=== PATIENT | male | born 1950 | race Caucasian/White ===

== ENCOUNTER 2016-08-26 16:28 | Inpatient (IN) | payer BC ==
[~2016-08-26] VITALS: Ht 172.7 cm; Wt 168.3 kg
[2016-08-26] MEDS ORDERED: ALBUTEROL2.5 MG/3 M INH (16:29)
[2016-08-26] MEDS ORDERED: ELIQUIS2.5 MG PO (16:29)
[2016-08-26] MEDS ORDERED: ASPIR 8181 MG ORAL (16:29)
[2016-08-26] MEDS ORDERED: Albuterol ud Inhalation HHN SCH (16:45)
[2016-08-26] MEDS ORDERED: Ipratropium 0.02% Inh Soln 2.5ml UD HHN SCH (16:45)
[2016-08-26 17:33] LABS: BASOPHILS % (AUTO) 1.6 % (0.0-2.0); EOSINOPHILS % (AUTO) 2.2 % (0.0-3.0); LYMPHOCYTES % (AUTO) 14.9 % (20.0-45.0); MEAN CORPUSCULAR HEMOGLOBIN 28.3 PG (27.0-31.0); MEAN CORPUSCULAR VOLUME 91 FL (80-99); MEAN PLATELET VOLUME 6.2 FL (6.5-10.1); MONOCYTES % (AUTO) 9.6 % (1.0-10.0); NEUTROPHILS % (AUTO) 71.7 % (45.0-75.0); PLATELET COUNT 231 K/UL (150-450); RED BLOOD COUNT 3.67 M/UL (4.70-6.10); RED CELL DISTRIBUTION WIDTH 16.4 % (11.6-14.8); WHITE BLOOD COUNT 8.2 K/UL (4.8-10.8)
[2016-08-26 17:51] LABS: ABG ALLEN TEST POSITIVE; ABG BASE EXCESS 3
[2016-08-26 17:53] LABS: TROPONIN I < 0.30 ng/mL (<=0.30)
[2016-08-26 17:54] LABS: ALBUMIN/GLOBULIN RATIO 0.6 (1.0-2.7); CALCIUM 9.1 mg/dL (8.6-10.2); CREATININE 1.5 mg/dL (0.7-1.2); POTASSIUM 4.4 mEQ/L (3.4-4.9)
[2016-08-26 18:00] VITALS: BP 127/78
[2016-08-26 18:04] LABS: CKMB 3.6 ng/mL (< 6.7)
[2016-08-26 19:00] LABS: APPEARANCE,URINE CLEAR; KETONES,URINE NEGATIVE (NEGATIVE); LEUKOCYTE ESTERASE ,URINE 1+ (NEGATIVE); NITRITE,URINE NEGATIVE (NEGATIVE); PH,URINE 5 (4.5-8.0); PROTEIN,URINE 2+ (NEGATIVE); UROBILINOGEN,URINE NORMAL MG/DL (0.0-1.0)
[2016-08-26 19:14] LABS: RBC,URINE TNTC /HPF (0 - 0)
[2016-08-26 19:15] LABS: BACTERIA,URINE OCCASIONAL /HPF
--- NOTE | 2016-08-26 19:53 | Emergency Room Report ---
History of Present Illness General Chief Complaint: Dyspnea/Respdistress Source: EMS Present Illness HPI 66-year-old male presents ED for evaluation. Patient resides in [facility]. Per EMS patient called 911 because he was complaining of pain to his legs. Has history of bilateral stasis ulcers to both legs. Pain is a 10 out of 10. Throbbing. Nonradiating. No other aggravating or relieving factors. Patient is also complaining of shortness of breath. History of COPD. Denies any fevers or chills. Denies cough. Denies chest pain. She was hypoxic at the [facility] but O2 sats improved on nonrebreather placed by EMS. No other aggravating or relieving factors. Denies any other associated symptoms Allergies: Coded Allergies: No Known Allergies (Unverified , 08/26/16) Patient History Past Medical History: HTN, COPD Past Surgical History: none Pertinent Family History: none Social History: Denies: alcohol use, drug use, smoking Immunizations: UTD Reviewed Nursing Documentation: PMH: Agreed, PSxH: Agreed Nursing Documentation-PMH Hx Hypertension: Yes Hx COPD: Yes Review of Systems All Other Systems: negative except mentioned in HPI Physical Exam Vital Signs Date Time Temp Pulse Resp B/P Pulse Ox O2 Delivery O2 Flow Rate FiO2 08/26/16 16:24 98.1 75 20 126/64 97 Non-Rebreather 10.0 08/26/16 18:00 40 Sp02 EP Interpretation: reviewed, normal General Appearance: lethargic, obese Head: normocephalic Eyes: bilateral eye PERRL, bilateral eye normal inspection ENT: normal ENT inspection Neck: normal inspection Respiratory: decreased breath sounds, crackles Cardiovascular #1: regular rate, rhythm, no edema Gastrointestinal: normal bowel sounds, non tender, soft, non-distended, no guarding, no rebound Rectal: deferred Genitourinary: no CVA tenderness Musculoskeletal: normal inspection Neurologic: other - altered Psychiatric: other - altered Skin: other - venous stasis ulcers to bilateral lower extremities Lymphatic: normal inspection Procedures Critical Care Time Critical Care Time i. I feel this is a highly complex case requiring extensive working including EKG/Rhythm strip, Xray/CT/US, Blood/urine lab work, repeat exams while in ED, and administration of strong opiates/narcotics for pain control, admission to hospital or close patient follow up. Total time: 30 min bedside evaluation and treatment excludes procedures (EKG). Reason for critical care: Hypoxic, lethargic Possible complications: hypotension, hypertension, OH, shock, arrhythmias, metabolic acidosis, end organ damage, respiratory failure. Interventions: Labs, nebulizer treatment, EKG, chest x-ray, ABG, BiPAP Course: Patient to be evaluated for respiratory distress. O2 saturation low a [facility]. Patient placed on nonrebreather, O2 saturations improved however patient became more lethargic. ABG shows hypercapnia. Patient started on nebs , BiPAP. Given Lasix. Will be admitted to ICU Consultations: nursing staff, EMS, family Performed by: Dr Mann Tolerated well condition = critical j. because of unstable vital signs this patient had a condition that could potentially threaten life or limb. I feel this is a critical patient who required my full attention while patient was considered critical. Total Critical Care Time excluding procedures was greater than 35 minutes Medical Decision Making Diagnostic Impression: Primary Impression: Respiratory distress Additional Impressions: CHF exacerbation Qualified Codes: I50.9 - Heart failure, unspecified Venous stasis ulcers of both lower extremities ER Course Hospital Course 66-year-old male presents ED complaining of bilateral leg pain, history of venous stasis. Short of breath. Lethargic Differential diagnoses include: OH/unstable angina, contusion, muscle strain, PTX, rib fracture, cellulitis Clinical course Patient placed on stretcher. on irs agent. After initial history and physical I ordered labs, EKG, chest x-ray, nebulizer treatments labs reviewed- no leukocytosis, hemoglobin/hematocrit stable, creatinine elevated, troponins negative, BNP elevated EKG - NSR no ischemic changes Chest x-ray- significant caridomegaly, bilateral pleural effusions Patient is more lethargic than at arrival. Patient was on nonrebreather. Patient is likely experiencing CO2 narcolepsy. ABG shows hypercapnia. patient started on BiPAP. Patient will require admission to ICU Lasix given I. I feel this is a highly complex case requiring extensive working including EKG/Rhythm strip, Xray/CT/US, Blood/urine lab work, repeat exams while in ED, and administration of strong opiates/narcotics for pain control, admission to hospital or close patient follow up. Diagnosis - respiratory distresss, CHF exacerbation, venous stasis ulcers of both lower extermities admitted to ICU in critical condition Labs Test 08/26/16 16:55 08/26/16 17:37 08/26/16 18:00 White Blood Count 8.2 K/UL (4.8-10.8) Red Blood Count 3.67 M/UL (4.70-6.10) Hemoglobin 10.4 G/DL (14.2-18.0) Hematocrit 33.5 % (42.0-52.0) Mean Corpuscular Volume 91 FL (80-99) Mean Corpuscular Hemoglobin 28.3 PG (27.0-31.0) Mean Corpuscular Hemoglobin Concent 31.0 G/DL (32.0-36.0) Red Cell Distribution Width 16.4 % (11.6-14.8) Platelet Count 231 K/UL (150-450) Mean Platelet Volume 6.2 FL (6.5-10.1) Neutrophils (%) (Auto) 71.7 % (45.0-75.0) Lymphocytes (%) (Auto) 14.9 % (20.0-45.0) Monocytes (%) (Auto) 9.6 % (1.0-10.0) Eosinophils (%) (Auto) 2.2 % (0.0-3.0) Basophils (%) (Auto) 1.6 % (0.0-2.0) Sodium Level 140 mEQ/L (135-145) Potassium Level 4.4 mEQ/L (3.4-4.9) Chloride Level 98 mEQ/L (98-107) Carbon Dioxide Level 29 mEQ/L (20-30) Anion Gap 13 (5-15) Blood Urea Nitrogen 29 mg/dL (7-23) Creatinine 1.5 mg/dL (0.7-1.2) Estimat Glomerular Filtration Rate 47.0 mL/min (>60) Glucose Level 130 mg/dL (74-106) Lactic Acid Level 1.90 mmol/L (0.66-2.22) Calcium Level 9.1 mg/dL (8.6-10.2) Total Bilirubin 0.7 mg/dL (0.0-1.2) Aspartate Amino Transf (AST/SGOT) 32 U/L (5-40) Alanine Aminotransferase (ALT/SGPT) 25 U/L (3-41) Alkaline Phosphatase 104 U/L (40-129) Total Creatine Kinase 76 U/L (38-174) Creatine Kinase MB 3.6 ng/mL (< 6.7) Creatine Kinase MB Relative Index 4.7 Troponin I < 0.30 ng/mL (<=0.30) Pro-B-Type Natriuretic Peptide 2064 pg/mL (0-125) Total Protein 8.0 g/dL (6.6-8.7) Albumin 3.2 g/dL (3.5-5.2) Globulin 4.8 g/dL Albumin/Globulin Ratio 0.6 (1.0-2.7) Arterial Blood pH 7.370 (7.350-7.450) Arterial Blood Partial Pressure CO2 52.0 mmHg (35.0-45.0) Arterial Blood Partial Pressure O2 70.0 mmHg (75.0-100.0) Arterial Blood HCO3 29.0 mmol/L (22.0-26.0) Arterial Blood Oxygen Saturation 92.0 % (92.0-98.0) Arterial Blood Base Excess 3 Nura Test Positive Urine Color Pale yellow Urine Appearance Clear Urine pH 5 (4.5-8.0) Urine Specific Rogers 1.010 (1.005-1.035) Urine Protein 2+ (NEGATIVE) Urine Glucose (UA) Negative (NEGATIVE) Urine Ketones Negative (NEGATIVE) Urine Occult Blood 5+ (NEGATIVE) Urine Nitrite Negative (NEGATIVE) Urine Bilirubin Negative (NEGATIVE) Urine Urobilinogen Normal MG/DL (0.0-1.0) Urine Leukocyte Esterase 1+ (NEGATIVE) Urine RBC Tntc /HPF (0 - 0) Urine WBC 10-15 /HPF (0 - 0) Urine Squamous Epithelial Cells None /LPF (NONE/OCC) Urine Bacteria Occasional /HPF (NONE) Urine Opiates Screen Negative (NEGATIVE) Urine Barbiturates Screen Negative (NEGATIVE) Phencyclidine (PCP) Screen Negative (NEGATIVE) Urine Amphetamines Screen Negative (NEGATIVE) Urine Benzodiazepines Screen Negative (NEGATIVE) Urine Cocaine Screen Negative (NEGATIVE) Urine Marijuana (THC) Screen Negative (NEGATIVE) EKG Diagnostic Results Rate: normal Rhythm: NSR ST Segments: no acute changes ASA given to the pt in ED: No Rhythm Strip Diag. Results EP Interpretation: yes Rhythm: NSR, no PVC's, no ectopy Chest X-Ray Diagnostic Results EP Interpretation: Yes Findings: no effusion, no pneumothorax, no acute cardiopulmonary disease, other - cardiomegaly. pleura effusion Number of Views: 1 Last Vital Signs Date Time Temp Pulse Resp B/P Pulse Ox O2 Delivery O2 Flow Rate FiO2 08/26/16 18:32 66 16 Bi-pap 40 08/26/16 18:32 96 08/26/16 18:00 98.1 127/78 15.0 Status: improved Disposition: ADMITTED INPATIENT Condition: Critical Referrals: SELVIN PIERSON (PCP) MIREYA MANN M.D. Aug 26, 2016 19:53
[2016-08-26 20:00] VITALS: BP 115/55
[2016-08-26 21:02] VITALS: BP 102/48
[2016-08-26 22:00] VITALS: BP 122/52
[2016-08-26 23:00] VITALS: BP 129/91
[2016-08-26] MEDS: Norco 10mg/325mg tab ORAL PRN (23:06)
--- NOTE | 2016-08-26 23:08 | History and Physical Report ---
DATE OF ADMISSION: 08/26/2016 CHIEF COMPLAINT: Leg pain. HISTORY OF PRESENT ILLNESS: This 66-year-old man came to the emergency department by paramedics from a senior living. He called 911 himself due to unremitting pain in his legs secondary to chronic stasis ulcers. He was found to have respiratory failure when he arrived and was lethargic with evidence of hypercarbia. The blood gas is pending. Admission was arranged. PAST MEDICAL HISTORY: The patient can provide no history as he is poorly responsive. Records from [facility] reviewed. He has a history of peripheral arterial disease and chronic venous stasis dermatitis with stasis ulcers. He has congestive heart failure with decompensated diastolic dysfunction. He suffers from pulmonary hypertension due to obesity and hypoventilation syndrome. He may have chronic obstructive pulmonary disease and sleep apnea. He has chronic kidney disease with recent creatinine of 1.7. He is morbidly obese with BMI greater than 40. He has a history of pulmonary embolism and deep vein thrombosis. Now, on anticoagulants. He has type 2 diabetes with neuropathy and nephropathy. He has paroxysmal atrial fibrillation, restless leg syndrome, posttraumatic stress disorder, acid reflux, and is poorly compliant with CPAP or BiPAP. MEDICATIONS: Recent medication list includes albuterol nebulizer, Eliquis 5 mg twice a day, aspirin 81 mg, Symbicort two puffs twice a day, Cymbalta 30 mg daily, Lasix 40 mg twice a day, Neurontin 900 mg three times a day, [place] 7.5 every six hours as needed, melatonin 5 mg at night, metoprolol 25 mg twice a day, oxycodone, Protonix 40 mg daily, Lyrica 150 mg twice a day, Prandin 2 mg three times a day, Requip 2 mg four times a day p.r.n. for restless legs, and Spiriva one capsule daily. ALLERGIES: None. REVIEW OF SYSTEMS: Cannot be obtained. PHYSICAL EXAMINATION: GENERAL: The patient appears morbidly obese. VITAL SIGNS: Stable with blood pressure 126/64. He was on a nonrebreather mask when I arrived and was poorly responsive with asterixis and his oxygen mask was removed. His saturation prior to the oxygen mask I am told was about 88% to 90% and on the mask was 100%. SKIN: Warm and dry except for the lower legs described below. HEENT: Head is normocephalic. NECK: He has no jugular venous distention. CHEST: He has poor air entry. CARDIAC: Rhythm is regular. ABDOMEN: Soft and nontender. It is massively obese. There is no liver or spleen enlargement or ascites. EXTREMITIES: Have 3+ edema with oozing from leg ulcers in the pretibial areas. LABORATORY AND DIAGNOSTIC DATA: Imaging is pending. Chemistry is pending. Hematology shows hemoglobin of 10 and normal white count and platelets count. Blood gas is pending. IMPRESSION: 1. Acute respiratory failure, obesity, hypoventilation syndrome, possible sleep apnea, and possible chronic obstructive pulmonary disease. 2. Pulmonary hypertension. 3. Cor pulmonale with marked edema. 4. Chronic stasis ulcers. 5. Diabetes with neuropathy and nephropathy. 6. Chronic kidney disease. 7. Congestive heart failure, diastolic. 8. History of pulmonary embolism and deep vein thrombosis. 9. Paroxysmal atrial fibrillation. 10. Restless leg syndrome. PLAN: I believe, the patient would require intensive care unit admission as his blood gas in fact is poor and we will put him on BiPAP and initiate diuresis. Cardiology consultation will be requested. Guillermo Valdez M.D. DR: DENISE JOB#: [id number] CC:
[2016-08-26] MEDS: Albuterol ud Inhalation HHN SCH (23:33)
[2016-08-27] VITALS (17 sets, daily range): BP systolic 86–138; BP diastolic 41–75
--- NOTE | 2016-08-27 02:08 | Consultation ---
DATE OF CONSULTATION: 08/26/2016 CARDIOLOGY CONSULTATION: REQUESTING PHYSICIAN: Guillermo Valdez M.D. REASON FOR CONSULTATION: Congestive heart failure. HISTORY OF PRESENT ILLNESS: This 66-year-old male presented to the emergency room from a assisted facility because of leg pain, shortness of breath, and swelling. He denies any chest pain. He denies fevers or chills. He was hypoxic and has been on oxygen by non-rebreather mask. PAST MEDICAL HISTORY: Includes COPD, hypertension, congestive heart failure, type 2 diabetes mellitus, peripheral artery disease, chronic kidney disease, post traumatic stress disorder, paroxysmal atrial fibrillation, pulmonary hypertension, chronic venous insufficiency, and sleep apnea. MEDICATIONS: Reviewed and reconciled. ALLERGIES: None known. SOCIAL HISTORY: Prior smoker. No alcohol or substance abuse. REVIEW OF SYSTEMS: No fevers. He has leg pain. No history of stroke. No change in bowel habits. No dysuria or frequency. He does have a wound on his lower leg that is being treated with therapy. PHYSICAL EXAMINATION: GENERAL: The patient is a moderately obese in mild respiratory distress. VITAL SIGNS: Afebrile, blood pressure 126/64, heart rate 75, and respiratory rate 20. HEENT: Conjunctivae are pink. Oropharynx clear. NECK: Obese. There is accessory muscle use. LUNGS: With coarse breath sounds and rhonchi with basilar rales. CARDIAC: Regular rhythm and rate. Normal S1, S2 with a 1/6 systolic apical murmur. ABDOMEN: Soft and nontender. Moderately obese. EXTREMITIES: With stasis ulcers to both lower extremities and dependent edema. LABORATORY AND DIAGNOSTIC DATA: EKG revealed sinus rhythm with nonspecific ST changes. Chest x-ray reveals pleural effusions and pulmonary venous congestion. Sodium 140, potassium 4.4, BUN 29, creatinine 1.5, bicarb 29, and glucose 130. Pro-natriuretic peptide is 2064. Troponin level negative. Lactic acid 1.9. White count 8.2 and hemoglobin 10.4. ABG, pH 7.37, pCO2 52, and pO2 70. IMPRESSION: 1. Acute on chronic diastolic congestive heart failure. 2. Pleural effusions. 3. Acute on chronic respiratory acidosis. 4. Chronic obstructive pulmonary disease exacerbation. 5. History of sleep apnea. 6. Hematuria and possible urinary tract infection. 7. Peripheral artery disease. 8. Vascular ulcer of the lower extremity. 9. Mild protein-calorie malnutrition. 10. Anemia likely of chronic kidney disease. 11. Type 2 diabetes mellitus. 12. Diabetic nephropathy. 13. Chronic kidney disease, stage 3. PLAN: BiPAP support. Diuresis. Monitor chemistry panel. Continue Eliquis for cardioembolic prophylaxis. Trend natriuretic peptide assay. Inhaled bronchodilators. Wound care per evaluation. Follow up cultures. Moses Melvin M.D. DR: Audra JOB#: [id number] CC:
[2016-08-27] MEDS: Norco 5mg/325mg tab ORAL PRN ×3 (02:10→14:09)
[2016-08-27] MEDS: Albuterol ud Inhalation HHN SCH ×5 (03:27→23:00)
[2016-08-27 06:14] LABS: BASOPHILS % (AUTO) 1.1 % (0.0-2.0); EOSINOPHILS % (AUTO) 3.3 % (0.0-3.0); LYMPHOCYTES % (AUTO) 15.8 % (20.0-45.0); MEAN CORPUSCULAR HEMOGLOBIN 27.6 PG (27.0-31.0); MEAN CORPUSCULAR HGB CONC 30.6 G/DL (32.0-36.0); MEAN CORPUSCULAR VOLUME 90 FL (80-99); MEAN PLATELET VOLUME 6.4 FL (6.5-10.1); NEUTROPHILS % (AUTO) 67.9 % (45.0-75.0); PLATELET COUNT 255 K/UL (150-450); RED BLOOD COUNT 3.77 M/UL (4.70-6.10); RED CELL DISTRIBUTION WIDTH 15.7 % (11.6-14.8); WHITE BLOOD COUNT 8.3 K/UL (4.8-10.8)
[2016-08-27] MEDS: Repaglinide 1mg tab ORAL SCH ×2 (06:17→11:31)
[2016-08-27] MEDS: NovoLOG Insulin Flexpen SUBQ SCH ×4 (06:18→21:00)
[2016-08-27 06:58] LABS: ALBUMIN/GLOBULIN RATIO 0.6 (1.0-2.7); CALCIUM 9.1 mg/dL (8.6-10.2); CREATININE 1.5 mg/dL (0.7-1.2); POTASSIUM 4.1 mEQ/L (3.4-4.9)
[2016-08-27] MEDS ORDERED: DULoxetine 30mg cap ORAL SCH (09:00)
[2016-08-27] MEDS ORDERED: Lyrica 75mg cap ORAL SCH ×2 (09:00→18:00)
[2016-08-27] MEDS ORDERED: Eliquis 2.5mg tablet ORAL SCH ×4 (09:00→22:00)
[2016-08-27] MEDS ORDERED: Spironolactone 25mg tab ORAL SCH (09:00)
[2016-08-27] MEDS ORDERED: Nystatin Powder 100,000 units/gm 15gm TOPIC SCH ×2 (09:00→18:00)
[2016-08-27] MEDS ORDERED: Aspirin EC 81mg tab ORAL SCH (09:00)
[2016-08-27] MEDS ORDERED: Metoprolol 25mg tab ORAL SCH ×2 (09:00→21:00)
[2016-08-27] MEDS: Nystatin Powder 100,000 units/gm 15gm TOPIC SCH ×2 (09:34→14:09)
--- NOTE | 2016-08-27 11:06 | Critical Care Progress Note ---
Assessment/Plan Status: stable, progressing Assessment/Plan 1. Acute on chronic diastolic congestive heart failure. 2. Pleural effusions. 3. Acute on chronic respiratory acidosis. 4. Chronic obstructive pulmonary disease exacerbation. 5. History of sleep apnea. 6. Hematuria and possible urinary tract infection. 7. Peripheral artery disease. 8. Vascular ulcer of the lower extremity. 9. Mild protein-calorie malnutrition. 10. Anemia likely of chronic kidney disease. 11. Type 2 diabetes mellitus. 12. Diabetic nephropathy. 13. Chronic kidney disease, stage 3. more alert, no asterixis sat too high, disc w RN and will lower O2 to keep sat 90-94% diuresing well. BiPAP qhs and prn SOB Critical Care - Subjective Condition: improving EKG Rhythm: Sinus Rhythm I&O: Intake and Output 08/26/16 08/27/16 19:00 07:00 Intake Total 540 ml Output Total 3775 ml Balance -3235 ml Intake Oral 480 ml Other 60 ml Output Urine Total 3775 ml # Voids 10 Critical Care - Objective Last 24 Hour Vital Signs Date Time Temp Pulse Resp B/P Pulse Ox O2 Delivery O2 Flow Rate FiO2 08/27/16 10:00 68 16 103/57 93 Room Air 08/27/16 09:00 75 16 97/64 91 Room Air 08/27/16 08:48 98.2 08/27/16 08:48 98.2 08/27/16 08:18 73 102/70 08/27/16 08:00 68 08/27/16 08:00 30 08/27/16 08:00 98.2 74 17 102/70 94 Nasal Cannula 2.0 08/27/16 07:00 73 16 119/69 98 Bi-pap 12.0 40 08/27/16 06:00 73 16 101/75 96 Bi-pap 12.0 40 08/27/16 05:09 65 15 97 Facial 30 08/27/16 05:00 71 17 104/41 99 Bi-pap 12.0 40 08/27/16 04:00 98.1 76 15 94/48 99 30 08/27/16 04:00 66 08/27/16 03:27 68 15 98 Bi-pap 30 08/27/16 03:27 30 08/27/16 03:24 68 15 96 Facial 30 08/27/16 03:00 69 14 86/66 98 Bi-pap 12.0 40 08/27/16 02:00 70 15 123/56 96 Bi-pap 12.0 40 08/27/16 01:00 71 22 94/48 96 Bi-pap 12.0 40 08/27/16 00:39 74 16 97 Facial 30 08/27/16 00:00 98.1 76 16 94/48 94 15.0 40 08/27/16 00:00 72 08/26/16 23:41 68 16 98 Bi-pap 30 08/26/16 23:35 72 16 98 Facial 30 08/26/16 23:34 30 08/26/16 23:33 72 16 98 Bi-pap 30 08/26/16 23:00 71 22 129/91 94 Bi-pap 12.0 40 08/26/16 22:00 69 22 122/52 97 Bi-pap 12.0 40 08/26/16 21:30 75 21 97 Facial 30 08/26/16 21:02 67 22 102/48 97 Bi-pap 15.0 40 08/26/16 20:10 70 08/26/16 20:00 97.9 70 20 115/55 98 15.0 40 08/26/16 20:00 40 08/26/16 19:45 98.1 71 16 127/78 96 Bi-pap 15.0 40 08/26/16 18:32 66 16 Bi-pap 40 08/26/16 18:32 66 16 96 Facial 40 08/26/16 18:00 98.1 71 17 127/78 100 Bi-pap 15.0 40 08/26/16 18:00 77 17 Room Air 08/26/16 16:24 98.1 75 20 126/64 97 Non-Rebreather 10.0 Status: awake, alert Condition: improving, other - morbidly obese Lungs: wheezing Heart: normal rate Abdomen: soft Extremities: edema - 3+ Accucheck: 102 ARY WILLIS Aug 27, 2016 11:06
--- NOTE | 2016-08-27 13:29 | Cardiology Report ---
APPROVED REPORT EXAM: Two-dimensional and M-mode echocardiogram with Doppler and color Doppler. INDICATION Other M-Mode DIMENSIONS IVSd1.6 (0.7-1.1cm)Left Atrium (MM)5.3 (1.6-4.0cm) LVDd5.5 (3.5-5.6cm)Aortic Root3.6 (2.0-3.7cm) PWd1.5 (0.7-1.1cm)Aortic Cusp Exc.1.7 (1.5-2.0cm) LVDs4.0 (2.5-4.0cm) PWs1.5 cm Limited study due to patient request to end exam. Technically difficult study due to poor acoustic windows and patient body habitus. Normal left ventricular chamber size. This study precludes full assesmsnt of LV WM and EF.. Mild left ventricular hypertrophy. Anterior Echo-free space, may be due to pericardial fat or effusion. No evidence of pericardial effusion. Mild right ventricular enlargement. Left atrial chamber size is within normal limits. Right atrial chamber size is within normal limits. Mild focal aortic valve sclerosis with adequate cusp excursion. Mildly thickened mitral valve leaflets with normal excursion. Mild mitral annulus and aortic root calcification. Pulmonic valve not well visualized. Normal tricuspid valve structure. IVC not obtainable. A color flow and spectral Doppler study was performed and revealed: Trace aortic regurgitation. Trace mitral regurgitation. Mitral inflow velocities indicates possible pseudo normalization pattern implying significant left ventricular diastolic dysfunction (Grade II). Trace tricuspid regurgitation.
[2016-08-27] MEDS: Norco 10mg/325mg tab ORAL PRN (14:51)
--- NOTE | 2016-08-27 16:28 | Wound Care Consultation ---
Wound Assessment Wound Assessment : Wound Present on Admission: Yes New Wound: No Status Change of Wound: No Wound Location Body Site Modif: left, right, anterior Wound Location Body Site: leg - and toes with scabs Wound Type: vascular issue w/vascular changes Rubina Test: Does not Rubina Edema Degree: 4+ marked deep indentation Wound Thickness: Full Thickness Percent of Wound [place]/Red: 50 Percent of Wound Black/Brown: 50 Wound Drainage Description: Serosanguineous Wound Drainage Amount: Scant Wound Drainage Odor: None/Absent Tissue Surrounding Wound: Edematous Wound General Appearance: Reddened Wound Comment Stasis ulcer to both lower extremities and dependent edema on both legs. Both left and right legs with open wounds and dry scabs on the toes. Recommendation -Keep clean and dry -Turn and reposition -Local wound care as ordered -Optimize nutrition -Elevate both legs -Offload both heels -Assess and f/u with MD for any changes CHANTELLE GUIDO RN Aug 27, 2016 16:27
[2016-08-27] MEDS ORDERED: Repaglinide 1mg tab ORAL SCH (16:30)
[2016-08-27] MEDS ORDERED: Norco 5mg/325mg tab ORAL PRN (19:00)
[2016-08-27] MEDS ORDERED: Norco 10mg/325mg tab ORAL PRN (19:00)
--- NOTE | 2016-08-28 00:49 | Progress Note ---
DATE: 08/27/2016 CARDIOLOGY PROGRESS NOTE CRITICAL CARE - 45min SUBJECTIVE: The patient is less congested. He is responding well to IV diuretics. He is presently off BiPAP. OBJECTIVE: VITAL SIGNS: Blood pressure 103/57, pulse 68, respiratory rate 16, afebrile. NECK: Obese. LUNGS: With diminished breath sounds and rhonchi. CARDIAC: Regular rhythm and rate. Normal S1, S2. No new murmur. ABDOMEN: Obese and soft. EXTREMITIES: With 2 to 3+ dependent edema. No signs of asterixis LABORATORY DATA: White count 8.3, hemoglobin 10.4. Potassium 4.1, bicarbonate 32, BUN 29, creatinine 1.5 Pro-natriuretic peptide 2100, albumin 3.0. IMPRESSION: 1. Acute on chronic respiratory acidosis. 2. Chronic obstructive pulmonary disease exacerbation. 3. Acute on chronic diastolic congestive heart failure. 4. Acute on chronic kidney disease. 5. Pleural effusions. 6. Possible urinary tract infection with hematuria. 7. Venous insufficiency with vascular ulcer of the lower extremity. 8. Mild protein-calorie malnutrition. 9. Anemia of chronic kidney disease. 10. Type 2 diabetes mellitus with complications. PLAN: 1. Continue cautious diuresis. 2. Monitor cardiorenal parameters, electrolytes and acid-base status decreased oxygen delivery, BiPAP as needed. 3. DVT prophylaxis. 4. Hold parameters for medications if worse or progressive hypotension increase. Moses Melvin M.D. DR: RANDOLPH JOB#: [id number] CC: KRISHNA
[2016-08-28] MEDS ORDERED: DULoxetine 30mg cap ORAL SCH (09:00)
[2016-08-28] MEDS ORDERED: Aspirin EC 81mg tab ORAL SCH (09:00)
[2016-08-28] MEDS ORDERED: Spironolactone 25mg tab ORAL SCH (09:00)
--- NOTE | 2016-08-30 12:31 | Cardiology Report ---
APPROVED REPORT EKG Measurement Heart [id number] Normal sinus rhythm Normal ECG
--- NOTE | 2016-08-31 05:29 | Discharge Summary 2 SIG ---
DATE OF ADMISSION: 08/26/2016 DATE OF DISCHARGE: 08/27/2016 REASON FOR HOSPITALIZATION: 66-year-old male, who was brought by ambulance from [facility] where he resides because he was complaining of pain to his legs. The patient with a history of bilateral stasis ulcer. He rated pain as 10/10, throbbing, and nonradiating. The patient was also complaining of shortness of breath. The patient has a history of COPD. He denies fever or chills. Denies cough, wheezing, or hemoptysis. Denies chest pain. [facility] hypoxic [facility] the [facility]. O2 saturation improved by non-rebreathing mask placed by emergency ambulance. The workup in the ER revealed negative troponins. ProBNP was above 2000. EKG shows normal sinus rhythm. No acute changes. No ischemic changes. Chest x-ray revealed cardiomegaly and bilateral pleural effusion, but no pneumothorax. No acute cardiopulmonary disease. No leukocytosis. Stable hemoglobin and hematocrit. Elevated creatinine. The patient was more lethargic on arrival, more on a non-rebreather mask. ABG reveal hypercapnia. The patient was started on the BiPAP and the patient was transferred to ICU for further management. Also diuretic was given prior to transfer. ADMITTING DIAGNOSES: 1. Acute hypercapnic respiratory failure. 2. Hyperventilation syndrome. 3. Possible chronic obstructive pulmonary disease. 4. Possible obstructive sleep apnea. 5. Pulmonary hypertension. 6. Cor pulmonale with mild edema. 7. Acute diastolic congestive heart failure. 8. Chronic kidney disease. 9. Bilateral pleural effusion. 10. Peripheral arterial disease. 11. Chronic bilateral lower extremity stasis ulcer. 12. Paroxysmal atrial fibrillation. 13. History of DVT and PE. 14. Diabetes with neuropathy and nephropathy. 15. Restless legs syndrome. HOSPITAL STAY: The patient was admitted to intensive care unit. The patient was on diuresis with close monitoring of renal parameters , electrolytes, intake and output. Cardiology consult was requested. BiPAP support was provided. Anticoagulation with Eliquis resumed. Supplemental oxygen first via BiPAP was given. Patient was followed by ABG, improved and was able to be weaned to oxygen via nasal cannula. Pulmonary toilet in the form of nebulizing treatment with a bronchodilator was provided as needed. Wound care nurse seen the patient and gave further recommendation regarding bilateral lower extremities wound care. Blood sugar was managed with sliding scale of insulin, stable. Hemoglobin and hematocrit were stable, at the baseline. No trend down. The patient was subsequently transferred to [facility] for insurance issue. DISCHARGE DIAGNOSES: 1. Acute hypercapnic respiratory failure. 2. Hypoventilation syndrome. 3. Possible obstructive sleep apnea. 4. Possible chronic obstructive pulmonary disease. 5. Pulmonary hypertension. 6. Hnxks-[id number] diastolic congestive heart failure. 7. Chronic kidney disease. 8. Pleural effusion. 9. Peripheral arterial disease. 10. Chronic bilateral lower extremities stasis ulcer. 11. Paroxysmal atrial fibrillation. 12. History of deep vein thrombosis and pulmonary embolism. 13. Diabetes with neuropathy and nephropathy. 14. Restless legs syndrome. 15. Anemia likely, secondary to chronic kidney disease. 16. Mild protein-calorie malnutrition. DISCHARGE MEDICATIONS: See medication reconciliation list. DISCHARGE INSTRUCTIONS: The patient was transferred to [facility] for further management. Guillermo Valdez M.D. I have been assigned to dictate discharge summary on this account and I was not involved in the patient's management. Mayte BenitezUnited Memorial Medical Centersumi N.P. DR: DIAMOND JOB#: [id number] CC: KRISHNA
--- NOTE | 2016-09-07 14:09 | Diagnostic Imaging Report ---
Indication: SOB Technique: One view of the chest Comparison: 08/26/2016 Findings: Again demonstrated is marked cardiomegaly. Allowing for exposure differences, stable or slightly improved mild interstitial congestion. Suspect small right pleural effusion. Impression: Equivocally slightly improved interstitial congestion, over one day.
--- NOTE | 2016-09-07 14:09 | Diagnostic Imaging Report ---
Indication: SOB Technique: One view of the chest Comparison: none Findings: Body habitus limits evaluation. The heart is markedly enlarged. There is mild interstitial congestion. There may be small bilateral pleural effusions. Impression: Cardiomegaly, with mild interstitial congestion and possible small bilateral pleural effusions This agrees with the preliminary interpretation provided by the emergency room physician
== END 2016-08-27 23:45 | disposition short-term general hospital (02) | DRG 291 ==
LOC: EDBD 16:28 → EMR 17:45 → EDBEDREQ 18:10 → EDBEDREQSVC 18:10 → ICU 18:14 → EDBEDREQ 19:07 → 2W 08-27 15:22
PROC: 5A09357 Assistance with Respiratory Ventilation, Less than 24 Consecutive Hours, Continuous Positive Airway Pressure (ICD-10-PCS; principal; 2016-08-26)
DX: I50.33 Acute on chronic diastolic (congestive) heart failure (principal); J96.02 Acute respiratory failure with hypercapnia; E87.2 Acidosis; I27.2 Other secondary pulmonary hypertension; J90 Pleural effusion, not elsewhere classified; E11.21 Type 2 diabetes mellitus with diabetic nephropathy; E44.1 Mild protein-calorie malnutrition; E11.40 Type 2 diabetes mellitus with diabetic neuropathy, unspecified; E66.2 Morbid (severe) obesity with alveolar hypoventilation; I48.0 Paroxysmal atrial fibrillation; G25.81 Restless legs syndrome; Z68.43 Body mass index [BMI] 50.0-59.9, adult; I87.8 Other specified disorders of veins; F43.10 Post-traumatic stress disorder, unspecified; Z86.718 Personal history of other venous thrombosis and embolism; Z86.711 Personal history of pulmonary embolism; Z79.82 Long term (current) use of aspirin; E11.22 Type 2 diabetes mellitus with diabetic chronic kidney disease; D63.1 Anemia in chronic kidney disease; I87.2 Venous insufficiency (chronic) (peripheral); J44.9 Chronic obstructive pulmonary disease, unspecified; Z87.891 Personal history of nicotine dependence; N18.3 Chronic kidney disease, stage 3 (moderate); Z79.84 Long term (current) use of oral hypoglycemic drugs
CPT/HCPCS: 36415; 36600; 71010; 80053; 80300; 81003; 82550; 82553; 82803; 82962; 83605; 83880; 84484; 85025; 87040; 87070; 87081; 87086; 87181; 87205; 93005; 93306; 94640; 94664; J1815